=== PATIENT | female | born 1975 | race Caucasian/White ===

== ENCOUNTER → 2019-07-20 11:00 | Outpatient (CLI) | payer OTHER, MEDICAID, SELFPAY | PROVIDERS: Visit Provider Physician Assistant | DX: J02.9 Acute pharyngitis, unspecified (principal) | CPT/HCPCS: 87070 ==

== ENCOUNTER 2019-07-30 18:30 | Emergency (ER) | payer OTHER, MEDICAID, SELFPAY ==
[2019-07-30 18:32] VITALS: BP 170/94; PULSE 92; RESP 22; TEMP 36.3; O2SAT 99
--- NOTE | 2019-07-30 19:17 | ED.ABDPAIN ---
HPI - Abdominal Pain General Chief Complaint: Abdominal Pain Stated Complaint: RIGHT SIDE PAIN FEVER Time Seen by Provider: 07/30/19 18:38 Source: patient Mode of arrival: Ambulatory Limitations: no limitations History of Present Illness HPI narrative: 44-year-old female here for evaluation of right-sided abdominal pain states that the symptoms been going on for the past hour. She states that it was a gradual onset however reached its maximum within approximately 15 minutes. No urinary symptoms. No bowel changes. No nausea vomiting. Reports subjective fevers. States the pain is worse with palpation on the right. No rashes. Related Data Home Medications Medication Instructions Recorded Confirmed acetaminophen 650 mg 650 mg PO Q12H 07/20/19 07/20/19 tablet,extended release atorvastatin 40 mg tablet 40 mg PO DAILY 07/20/19 07/20/19 duloxetine 30 mg capsule,delayed 30 mg PO DAILY 07/20/19 07/20/19 release sprinkle furosemide 20 mg tablet 20 mg PO DAILY 07/20/19 07/20/19 liraglutide 0.6 mg/0.1 mL (18 mg/3 1.8 mg SUBCUT DAILY ml 07/20/19 07/20/19 mL) subcutaneous pen injector lisinopril 5 mg tablet 5 mg PO DAILY 07/20/19 07/20/19 metformin 1,000 mg tablet 1,000 mg PO DAILY 07/20/19 07/20/19 metoprolol tartrate 50 mg tablet 50 mg PO BID 07/20/19 07/20/19 norgestimate-ethinyl estradiol PO 07/20/19 07/20/19 sertraline 50 mg tablet 50 mg PO DAILY 07/20/19 07/20/19 Previous Rx's Medication Instructions Recorded azithromycin 250 mg tablet See Rx Instructions PO .COMPLEX #6 07/20/19 tab Allergies Allergy/AdvReac Type Severity Reaction Status Date / Time acetaminophen [From Vicodin] Allergy Severe vomiting Verified 07/20/19 10:39 cephalexin Allergy Severe hives Verified 07/20/19 10:39 clindamycin Allergy Severe hives Verified 07/20/19 10:39 gabapentin [From Neurontin] Allergy Severe manic Verified 07/20/19 10:39 hydrocodone [From Vicodin] Allergy Severe vomiting Verified 07/20/19 10:39 nortriptyline Allergy Severe heart Verified 07/20/19 10:39 palpatations Review of Systems Constitutional Constitutional: Reports fever(s) Cardiovascular Cardiovascular: Denies chest pain and Denies dyspnea Respiratory Respiratory: Denies dyspnea Gastrointestinal Gastrointestinal: Reports abdominal pain, Denies change in stool character, Denies nausea and Denies vomiting Genitourinary Genitourinary: Denies dysuria and Denies vaginal discharge Musculoskeletal Musculoskeletal: Denies myalgias and Denies arthralgias Integumentary/Breasts Skin/Breast: Denies rash Neurologic Neurologic: Denies behavioral changes Psychiatric Psychiatric: Denies behavioral changes Hematologic/Lymphatic Hematologic/Lymphatic: Denies easy bleeding and Denies easy bruising Patient History Surgical History No pertinent past surgical history (Acute) Social History Smoking Status: Former smoker Smoking Status: Former smoker Exam Initial Vital Signs Initial Vital Signs: Vital Signs Temperature 97.4 F L 07/30/19 18:32 Pulse Rate 92 H 07/30/19 18:32 Respiratory Rate 22 07/30/19 18:32 Blood Pressure 170/94 H 07/30/19 18:32 Pulse Oximetry 99 07/30/19 18:32 Const General: cooperative, well developed and well groomed Orientation: alert and oriented x3 HENMT Head: normal to inspection and normocephalic Resp Effort & Inspection: normal respiratory effort Auscultation: clear to auscultation bilaterally Cardio Rate: regular rate Rhythm: regular rhythm GI Palpation: soft, No firm and tender (Right-sided abdomen) Back/Spine/Pelvis Back: No CVA tenderness Skin Lesions: no lesions Rashes: no rashes Neuro General: alert and awake Cognition: normal cognition Speech: speech normal Extrem General: normal to inspection and capillary refill normal Psych Appearance: grossly normal and well kempt Course Orders Ordered: ED Orders 07/30/19 19:17 CBC Auto Diff [Complete Blood Count AUTO DIFF] Stat Comprehensive Metabolic Panel Stat Lipase Stat 07/30/19 19:25 CT abdomen pelvis w con Stat Discontinued Medications Sodium Chloride (Normal Saline 0.9%) 1,000 mls @ 1,000 mls/hr IV BOLUS ONE Stop: 07/30/19 20:23 Last Infusion: 07/30/19 21:23 Dose: 1,000 mls/hr Documented by: Admin: 07/30/19 19:38 Dose: 1,000 mls/hr Documented by: LEONARDO Ketorolac Tromethamine (Toradol) 30 mg IV NOW ONE Stop: 07/30/19 21:05 Last Admin: 07/30/19 21:08 Dose: 30 mg Documented by: LEONARDO Morphine Sulfate (Morphine) 4 mg IV NOW ONE Stop: 07/30/19 19:25 Last Admin: 07/30/19 19:37 Dose: 4 mg Documented by: LEONARDO Ondansetron HCl (Zofran) 4 mg IV NOW ONE Stop: 07/30/19 19:25 Last Admin: 07/30/19 19:43 Dose: Not Given Documented by: LEONARDO Oxycodone/Acetaminophen (Endocet 5/325 Prepack) 1 bottle MISC SEEINSTR ONE Stop: 07/30/19 22:11 Last Admin: 07/30/19 22:17 Dose: 1 bottle Documented by: LEONARDO Vital Signs Vital signs: Vital Signs - 8 hr 07/30/19 18:32 07/30/19 20:50 07/30/19 21:04 Temperature 97.4 F L Pulse Rate 92 H 84 87 Respiratory Rate 22 22 26 H Blood Pressure 170/94 H Blood Pressure [Left Arm] 144/68 H 144/68 H Pulse Oximetry 99 97 96 07/30/19 21:05 07/30/19 22:24 Temperature 99.4 F Pulse Rate 85 Respiratory Rate Blood Pressure 144/68 H Blood Pressure [Left Arm] Pulse Oximetry 97 MDM - Abdominal Pain Lab Data Attestation: I reviewed the patient's lab results. Result diagrams: 07/30/19 19:17 07/30/19 19:17 Labs: Lab Results 07/30/19 07/30/19 Range/Units 19:17 19:17 WBC 12.5 H (4.5-11.0) X10^3/uL RBC 4.50 (4.0-5.2) X10^6/uL Hgb 14.2 (12.0-16.0) g/dL Hct 41.6 (36-46) % MCV 92.5 (80-100) fL MCH 31.5 (26-34) PG MCHC 34.0 (30-36) % RDW 13.6 (11.6-14.8) % Plt Count 230 (150-400) X10^3/uL Neut % (Auto) 54.7 (50-75) % Lymph % (Auto) 34.6 (25-40) % [place] % (Auto) 8.1 (3-14) % Eos % (Auto) 1.6 L (2-4) % Baso % (Auto) 1.0 (0-2) % Neut # (Auto) 6900 (8787-0664) /uL Lymph # (Auto) 4300 (3175-2621) /uL [place] # (Auto) 1000 H (0-900) /uL Eos # (Auto) 200 (0-450) /uL Baso # (Auto) 100 (0-100) /uL Sodium 139 (137-145) mmol/L Potassium 4.2 (3.4-5.1) mmol/L Chloride 99 (98-107) mmol/L Carbon Dioxide 30 (22-32) mmol/L BUN 10 (7-17) mg/dL Creatinine 0.70 (0.52-1.04) mg/dL Estimated GFR > 60.0 (>60) mL/min BUN/Creatinine Ratio 14.3 (6-22) Glucose 132 H (70-100) mg/dL Calcium 9.4 (8.4-10.2) mg/dL Total Bilirubin 0.5 (0.2-1.3) mg/dL AST 27 (14-36) IU/L ALT 23 (<35) IU/L Alkaline Phosphatase 87 (38-126) U/L Total Protein 7.8 (6.3-8.2) g/dL Albumin 4.2 (3.5-5.0) g/dL Globulin 3.6 (1.7-4.1) g/dL Albumin/Globulin Ratio 1.2 (1.0-2.8) Lipase 287 (23-300) U/L Point of care testing: Point of Care Testing Test Results Negative Urine Dip Bedside Urine Glucose Negative Bedside Urine Bilirubin - Negative Bedside Urine Ketone - Negative Urine Specific [place] 1.010 Bedside Urine Occult Blood + Bedside Urine pH 7.0 Bedside Urine Protein +/- 15 Bedside Urine Urobilinogen - Negative Bedside Urine Nitrite - Negative Bedside Urine Leukocytes - Negative Esterase Imaging Data CT scan - abdomen: Radiologist's impression: [address] [address] [address] Scan Report Signed Patient: Michelle Lacey LMR#: [id number] : 1975Acct:[id number] Age/Sex: 44 / FDate of Service: 07/30/19 Loc: ED Accession Number: [id number] Procedure: CT abdomen pelvis w con Ordering Provider: Carlos Keith D.O. PROCEDURE: CT ABDOMEN PELVIS W CON INDICATIONS: Right sided abd pain TECHNIQUE: After the administration of intravenous contrast, 5 mm thick sections acquired from the diaphragm to the symphysis. 5 mm coronal and sagittal reformats were acquired. For radiation dose reduction, the following was used: automated exposure control, adjustment of mA and/or kV according to patient size. COMPARISON: None. FINDINGS: Image quality: Excellent. ABDOMEN: Lung bases: Lung bases are clear. Heart size is normal. Small hiatal hernia. Solid organs: Liver demonstrates nodular contour. Liver is normal in size and enhancement. Gallbladder is surgically absent. Biliary system is non dilated. Pancreas enhances normally. Spleen is mildly enlarged measuring 13.8 cm in length. No adrenal nodules. There are bilateral renal calculi. There is a 10 mm stone in the inferior pole of the right kidney. A 16 mm stone is noted at the left UPJ . Four smaller stones are seen interposed left kidney measuring 2-7 mm. There is mild left hydronephrosis. Kidneys demonstrate normal size and enhancement, without hydronephrosis. Peritoneum and bowel: Bowel loops demonstrate normal wall thickness and caliber. Normal appendix. No free fluid or air. Nodes and vessels: No retroperitoneal or mesenteric adenopathy by size criteria. Aorta and inferior vena cava are normal in size. Miscellaneous: No ventral hernias. PELVIS: Genitourinary: Bladder wall thickness is normal. Uterus and ovaries are normal. No free pelvic fluid. Miscellaneous: No inguinal hernias or adenopathy. Bones: No suspicious bony lesions. No vertebral body compression fractures. Degenerative changes in lumbar spine. IMPRESSION: 1. Nephrolithiasis bilaterally. There is 16 mm stone at the left UPJ causing mild left hydronephrosis. No right hydronephrosis. 2. Nodular contour of liver suggesting cirrhosis. 3. Mild splenomegaly. This finding may be related to portal hypertension. Dictated by: Mel Olivier M.D. on 07/30/2019 at 20:34 Approved by: Mel Olivier M.D. on 07/30/2019 at 20:43 [facility] Narrative Medical decision making narrative: Patient's labs are unremarkable. Has a slight leukocytosis without a specific source of infection. The skin is unremarkable. CT scan shows a fairly large left-sided renal stone. Her symptoms are on the right. Her physical exam is not consistent with kidney stone. Urine has blood consistent with a stone. No signs of urinary tract infection. CT scan does not show any intra-abdominal surgical pathology. No indication for antibiotics. Potentially this left-sided stone in the fact that it is so large is causing generalized abdominal pain. Unsure this is the exact etiology. Patient states that she had almost complete resolution of her symptoms after Toradol. We did discuss the kidney stone. We did discuss that she should talk with her primary provider about following up with Urology. I do not feel that there is a indication for an emergent urologic referral. Patient was given return precautions and follow-up instructions. She expressed understanding agreement with plan. Discharge Plan Departure Patient Disposition: Home Clinical Impression: Kidney stones, Left ureteral calculus Abdominal pain Qualifiers: Abdominal location: unspecified location Qualified Code(s): R10.9 - Unspecified abdominal pain Discharge Date/Time: 07/30/19 22:14 Instructions: DI for Abdominal Pain-Adult Activity Restrictions/Additional Instructions: I recommend that tomorrow morning you contact your primary provider. We obtained a CT scan of your abdomen and pelvis today. This may be the scan that they wanted to obtain tomorrow. They can call for the results. Take the medications as directed. I do recommend that you talk with your primary provider about a referral to see Urology. Return to the emergency department for any new or worsening symptoms Prescriptions: No Action sertraline 50 mg tablet 50 mg PO DAILY RF: 0 metformin 1,000 mg tablet 1,000 mg PO DAILY RF: 0 furosemide 20 mg tablet 20 mg PO DAILY RF: 0 metoprolol tartrate 50 mg tablet 50 mg PO BID RF: 0 lisinopril 5 mg tablet 5 mg PO DAILY RF: 0 duloxetine 30 mg capsule, delayed rel sprinkle 30 mg PO DAILY RF: 0 atorvastatin 40 mg tablet 40 mg PO DAILY RF: 0 Victoza 2-Alfredo 0.6 mg/0.1 mL (18 mg/3 mL) pen injector 1.8 mg SUBCUT DAILY RF: 0 norgestimate-ethinyl estradiol PO RF: 0 acetaminophen 650 mg tablet extended release 650 mg PO Q12H RF: 0 azithromycin 250 mg tablet See Rx Instructions PO .COMPLEX Qty: 6 RF: 0
[2019-07-30 19:23] LABS: Add Manual Diff / Slide Review NO; Basophils Absolute Auto 100 /uL (0-100); Eosinophils Absolute Auto 200 /uL (0-450); Eosinophils Percent Auto 1.6 % (2-4); Hematocrit 41.6 % (36-46); Hemoglobin 14.2 g/dL (12.0-16.0); Lymphocytes Absolute Auto 4300 /uL (1100-4500); Lymphocytes Percent Auto 34.6 % (25-40); Mean Corpuscular Hemoglobin 31.5 PG (26-34); Mean Corpuscular Volume 92.5 fL (80-100); Monocytes Absolute Auto 1000 /uL (0-900); Monocytes Percent Auto 8.1 % (3-14); Neutrophils Absolute Auto 6900 /uL (1500-7000); Neutrophils Percent Auto 54.7 % (50-75); Platelet Count 230 X10^3/uL (150-400); Red Cell Distribution Width 13.6 % (11.6-14.8); White Blood Cell Count 12.5 X10^3/uL (4.5-11.0)
--- NOTE | 2019-07-30 19:25 | DI.CT.S_ITS ---
PROCEDURE: CT ABDOMEN PELVIS W CON INDICATIONS: Right sided abd pain TECHNIQUE: After the administration of intravenous contrast, 5 mm thick sections acquired from the diaphragm to the symphysis. 5 mm coronal and sagittal reformats were acquired. For radiation dose reduction, the following was used: automated exposure control, adjustment of mA and/or kV according to patient size. COMPARISON: None. FINDINGS: Image quality: Excellent. ABDOMEN: Lung bases: Lung bases are clear. Heart size is normal. Small hiatal hernia. Solid organs: Liver demonstrates nodular contour. Liver is normal in size and enhancement. Gallbladder is surgically absent. Biliary system is non dilated. Pancreas enhances normally. Spleen is mildly enlarged measuring 13.8 cm in length. No adrenal nodules. There are bilateral renal calculi. There is a 10 mm stone in the inferior pole of the right kidney. A 16 mm stone is noted at the left UPJ . Four smaller stones are seen interposed left kidney measuring 2-7 mm. There is mild left hydronephrosis. Kidneys demonstrate normal size and enhancement, without hydronephrosis. Peritoneum and bowel: Bowel loops demonstrate normal wall thickness and caliber. Normal appendix. No free fluid or air. Nodes and vessels: No retroperitoneal or mesenteric adenopathy by size criteria. Aorta and inferior vena cava are normal in size. Miscellaneous: No ventral hernias. PELVIS: Genitourinary: Bladder wall thickness is normal. Uterus and ovaries are normal. No free pelvic fluid. Miscellaneous: No inguinal hernias or adenopathy. Bones: No suspicious bony lesions. No vertebral body compression fractures. Degenerative changes in lumbar spine. IMPRESSION: 1. Nephrolithiasis bilaterally. There is 16 mm stone at the left UPJ causing mild left hydronephrosis. No right hydronephrosis. 2. Nodular contour of liver suggesting cirrhosis. 3. Mild splenomegaly. This finding may be related to portal hypertension. Dictated by: Mel Olivier M.D. on 07/30/2019 at 20:34 Approved by: Mel Olivier M.D. on 07/30/2019 at 20:43
[2019-07-30 19:34] LABS: Alanine Aminotransferase 23 IU/L (<35); Albumin 4.2 g/dL (3.5-5.0); Albumin Globulin Ratio 1.2 (1.0-2.8); Alkaline Phosphatase 87 U/L (38-126); Aspartate Aminotransferase 27 IU/L (14-36); BUN Creatinine Ratio 14.3 (6-22); Bilirubin Total 0.5 mg/dL (0.2-1.3); Blood Urea Nitrogen 10 mg/dL (7-17); Calcium 9.4 mg/dL (8.4-10.2); Carbon Dioxide 30 mmol/L (22-32); Chloride 99 mmol/L (98-107); Estimated Glomerular Filt Rate > 60.0 mL/min (>60); Globulin 3.6 g/dL (1.7-4.1); Glucose 132 mg/dL (70-100); HEMOLYSIS < 15 (0-50); Lipase 287 U/L (23-300); Potassium 4.2 mmol/L (3.4-5.1); Sodium 139 mmol/L (137-145); Total Protein 7.8 g/dL (6.3-8.2)
[2019-07-30] MEDS: MORPHINE 4 MG/ML INJ IV (19:37)
[2019-07-30] MEDS: SODIUM CHLORIDE 0.9% 1,000 ML 1000 ML IV (19:38)
[2019-07-30 20:50] VITALS: BP 144/68; PULSE 84; RESP 22; O2SAT 97
[2019-07-30 21:04] VITALS: BP 144/68; PULSE 87; RESP 26; O2SAT 96
[2019-07-30 21:05] VITALS: TEMP 37.4
[2019-07-30] MEDS: KETOROLAC 60 MG/2 ML VIAL 30 MG IV (21:08)
[2019-07-30] MEDS: OXYCODONE/APAP 5/325 PREPACK 1 BOTTLE MISC (22:17)
[2019-07-30 22:24] VITALS: BP 144/68; PULSE 85; O2SAT 97
== END 2019-07-30 22:14 | disposition home or self-care (01) ==
PROVIDERS: Emergency Provider Emergency Medicine
DX: N20.2 Calculus of kidney with calculus of ureter (principal); R10.9 Unspecified abdominal pain
CPT/HCPCS: 36415; 74177; 80053; 81003; 81025; 83690; 85025; 96374; 96375; 99284; J1885; J2270; J2405; Q9967